=== PATIENT | female | born 1935 | race Caucasian/White ===

== ENCOUNTER 2016-07-27 18:17 | Observation (INO) | payer OTHER, BC ==
[~2016-07-27] VITALS: Ht 172.7 cm; Wt 87.5 kg
[~2016-07-27 18:17] MED LIST: ACIPHEX20 MG PO; ANTIVERT25 MG PO; B-12 PO; BENICAR HCT 401 EAC1 PO; BENICAR20 MG; BYSTOLIC5 MG PO; Benicar PO; CALCIUM + VITA1 EACH PO; CENTURY SENIOR PO; CRESTOR10 MG PO; Cardizem CD,Cartia X PO; Cozaar PO; EVISTA60 MG PO; Evista PO; K-DUR20 MEQ PO; LASIX20 MG PO; LASIX40 MG PO; LODINE500 MG PO; LOSARTAN POTAS100 MG PO; Levothroid,Synthroid PO; METOPROLOL SUCC25 MG PO; NEXIUM40 MG PO; NORCO 5/3251 TABLET PO; PANTOPRAZOLE SO40 MG PO; SYNTHROID50 MCG PO; SYNTHROID88 MCG PO; TOPROL XL50 MG PO; TYLENOL REGULA325 MG PO; Toprol XL PO; XARELTO20 MG PO; Xarelto PO; ZOFRAN4 MG PO
[2016-07-27 21:33] LABS: HEMATOCRIT 39.6 % (36.0-46.0); MCHC 33.1 G/DL (30.0-36.0); MCV 96.6 FL (83-99); MEAN PLAT.VOLUME 9.5 uM^3 (9.5-12.4); PLATELET COUNT 287 K/uL (156-360); RBC DIS.WIDTH-CV 12.7 % (11.8-14.6); RBC DIS.WIDTH-SD 42.8 % (39-53); WHITE BLOOD COUNT 14.1 K/uL (4.1-10.2)
[2016-07-27 21:43] LABS: CHLORIDE 101 mEq/L (99-109); POTASSIUM 4.3 mEq/L (3.7-5.4); SODIUM 138 mEq/L (136-147)
[2016-07-27 21:44] LABS: GLUCOSE 136 mg/dL (70-99)
[2016-07-27 21:46] LABS: ANION GAP 17 MEQ/L (2-14)
[2016-07-27 21:48] LABS: GFR ESTIMATE (CALCULATED) 51 mL/min/
[2016-07-27 21:49] LABS: UREA NITROGEN (BUN) 17 mg/dL (9-23)
[2016-07-27 21:53] LABS: TROP-I INTERPRETATION NEGATIVE; TROPONIN-I < 0.01 ng/mL (0.0-0.30)
[2016-07-27] MEDS ORDERED: VALSARTAN160 MG PO (22:50)
[2016-07-27] MEDS ORDERED: TAMBOCOR100 MG PO ×2 (22:51)
[2016-07-27] MEDS ORDERED: CATAPRES-TTS 31 EACH TD (22:52)
[2016-07-27] MEDS ORDERED: APRESOLINE100 MG PO (22:56)
[2016-07-27 23:55] LABS: ADD MIUA? YES; BILIRUBIN NEGATIVE; BLOOD NEGATIVE; COLOR YELLOW ((YELLOW)); GLUCOSE (STRIP) NEGATIVE; KETONES NEGATIVE; LEUKOCYTES MODERATE; NITRITE NEGATIVE; PROTEIN (STRIP) 30; SPECIFIC GRAVITY 1.014 (1.000-1.030); UROBILINOGEN 0.2 MG/DL (0.2-1.0)
[2016-07-28 01:02] LABS: BACTERIA NONE SEEN; CASTS NONE SEEN /LPF; CRYSTALS NONE SEEN; EPITHELIAL CELLS RARE; MUCUS NONE SEEN; RED BLOOD CELLS NONE SEEN /HPF (0-5); UCUL ADDED? NO
[2016-07-28 02:34] VITALS: BP 133/63
[2016-07-28 03:30] VITALS: BP 122/60
[2016-07-28 04:33] LABS: TROP-I INTERPRETATION NEGATIVE; TROPONIN-I < 0.01 ng/mL (0.0-0.30)
[2016-07-28 08:37] VITALS: BP 178/79
[2016-07-28 12:48] VITALS: BP 145/68
[2016-07-28 13:41] LABS: TROP-I INTERPRETATION NEGATIVE; TROPONIN-I < 0.01 ng/mL (0.0-0.30)
[2016-07-28 16:00] VITALS: BP 148/87
[2016-07-28] MEDS ORDERED: ASPIR-LOW81 MG PO (19:56)
[2016-07-28] MEDS ORDERED: TYLENOL REGULA325 MG PO (19:56)
== END 2016-07-28 21:15 | disposition home or self-care (01) ==
LOC: EXP 18:17 → EME 18:17 → 5WEST 23:35 → EDOF 23:35 → 5WEST 07-28 01:19
PROVIDERS: Internal Medicine; Physician Assistant
DX: R07.9 Chest pain, unspecified (principal); J44.9 Chronic obstructive pulmonary disease, unspecified; I10 Essential (primary) hypertension; G47.33 Obstructive sleep apnea (adult) (pediatric); R53.1 Weakness; R42 Dizziness and giddiness; R61 Generalized hyperhidrosis; R06.02 Shortness of breath; R26.9 Unspecified abnormalities of gait and mobility; T46.5X5A Adverse effect of other antihypertensive drugs, initial encounter; I48.0 Paroxysmal atrial fibrillation; Z79.82 Long term (current) use of aspirin; K21.9 Gastro-esophageal reflux disease without esophagitis
CPT/HCPCS: 71020; 80048; 81003; 84484; 85027; 93005; 99281; 99285; G0378; J7030

== ENCOUNTER → 2017-11-25 | Outpatient (CLI) | payer MEDICARE, BC ==
[~2017-11-25] MED LIST changes: +APRESOLINE100 MG PO; +ASPIR-LOW81 MG PO; +CATAPRES-TTS 31 EACH TD; +TAMBOCOR100 MG PO; +VALSARTAN160 MG PO
== END | disposition home or self-care (01) ==
LOC: CDC 12:15
DX: Z01.810 Encounter for preprocedural cardiovascular examination (principal); H25.11 Age-related nuclear cataract, right eye; I44.0 Atrioventricular block, first degree; I51.7 Cardiomegaly; R94.31 Abnormal electrocardiogram [ECG] [EKG]
CPT/HCPCS: 93000

== ENCOUNTER 2018-02-23 18:36 | Emergency (ER) | payer OTHER, BC ==
[~2018-02-23] VITALS: Ht 172.7 cm; Wt 89.0 kg
[2018-02-23 18:45] VITALS: BP 177/123
[2018-02-23 19:32] LABS: HEMOGLOBIN 12.2 G/DL (11.9-15.5); MCH 32.1 PG (29.0-34.0); MCHC 33.9 G/DL (30.0-36.0); MCV 94.7 FL (83-99); PLATELET COUNT 281 K/uL (156-360); RBC DIS.WIDTH-SD 44.8 % (39-53); WHITE BLOOD COUNT 9.8 K/uL (4.1-10.2)
[2018-02-23 19:41] LABS: CHLORIDE 98 mEq/L (99-109); POTASSIUM 3.8 mEq/L (3.7-5.4); SODIUM 137 mEq/L (136-147)
[2018-02-23 19:43] LABS: GLUCOSE 133 mg/dL (70-99)
[2018-02-23 19:46] LABS: CREATININE 1.1 mg/dL (0.6-1.3); GFR ESTIMATE (CALCULATED) 51 mL/min/
[2018-02-23 19:47] LABS: UREA NITROGEN (BUN) 13 mg/dL (9-23)
[2018-02-23 19:53] LABS: TROP-I INTERPRETATION NEGATIVE; TROPONIN-I < 0.01 ng/mL (0.0-0.30)
== END 2018-02-23 20:38 | disposition home or self-care (01) ==
LOC: EME 18:36
PROVIDERS: Emergency Medicine
DX: I48.91 Unspecified atrial fibrillation (principal); I11.0 Hypertensive heart disease with heart failure; I50.9 Heart failure, unspecified; E78.5 Hyperlipidemia, unspecified; E03.9 Hypothyroidism, unspecified; I27.20 Pulmonary hypertension, unspecified; Z88.2 Allergy status to sulfonamides; Z88.5 Allergy status to narcotic agent; Z87.891 Personal history of nicotine dependence
CPT/HCPCS: 80048; 84484; 85027; 93005; 99281; 99283